=== PATIENT | male | born 1960 | race African-American/Black ===

== ENCOUNTER 2023-10-30 20:15 | Emergency (ER) | payer OTHER ==
[~2023-10-30] VITALS: Ht 167.6 cm; Wt 77.3 kg
[2023-10-30 20:40] VITALS: BP 164/82; PULSE 55; RESP 16; TEMP 98.7
[2023-10-30] MEDS ORDERED: CHLO25TA3 PO (21:15)
[2023-10-30] MEDS ORDERED: SEMA14TA2 PO (21:15)
[2023-10-30] MEDS ORDERED: ATOR20TA65 PO (21:15)
[2023-10-30] MEDS ORDERED: LISI20TA24 PO (21:15)
[2023-10-30] MEDS ORDERED: METF-446 PO (21:15)
[2023-10-30] MEDS ORDERED: METF-81 PO (21:15)
[2023-10-30] MEDS ORDERED: LEVO250T75 PO (23:14)
== END 2023-10-30 23:53 | disposition home or self-care (01) ==
LOC: EMS 20:18
DX: I10 Essential (primary) hypertension (principal); E11.9 Type 2 diabetes mellitus without complications; E78.00 Pure hypercholesterolemia, unspecified
CPT/HCPCS: 99283